=== PATIENT | female | born 1940 | race Caucasian/White ===

== ENCOUNTER 2020-09-25 10:32 | Emergency (ER) | payer OTHER ==
[~2020-09-25 10:32] MED LIST: AMIODARONE HCL200 MG PO; ASPIRIN EC81 MG PO; ATORVASTATIN CA20 MG PO; AUGMENTIN 875-1 EACH PO; BENTYL10 MG PO; COUMADIN1 MG PO; COZAAR 25MG TAB25 MG PO; DICYCLOMINE HCL20 MG PO; ELIQUIS5 MG PO; K-DUR20 MEQ PO; LASIX20 MG PO; LIPITOR20 MG PO; LOVAZA1 GM PO; PROTONIX 40MG T40 MG PO; SENNA8.6 MG PO; TOPROL XL 25MG25 MG PO; TRIAMTERENE-HC1 EAC1 PO; TRIAMTERENE-HC1 EACH PO
[2020-09-25 11:35] LABS: BASOPHIL 1.2 % (0-2); EOSINOPHIL 3.3 % (0-7); HCT 36.2 % (37.0-47.0); HGB 11.6 g/dl (12.5-16.0); LYMPHOCYTE 26.2 % (15-48); MCH 31.4 pg (25.0-31.0); MCV 98.1 fL (78.0-100.0); MPV 9.4 fL (6.0-9.5); NEUTROPHIL 61.1 % (41-80); NRBC 0; PLT 215 K/uL (150-400); RBC 3.69 M/uL (4.20-5.40); RDW 15.5 % (11.5-14.0)
[2020-09-25 12:02] LABS: ALBUMIN 3.5 g/dL (3.4-5.0); ALKALINE PHOSHATASE 123 U/L (46-116); ALT 29 U/L (14-59); AST 22 U/L (15-37); BILIRUBIN - TOTAL 0.4 mg/dL (0.2-1.0); BUN 20 mg/dL (7-18); BUN/CREAT RATIO (CALC) 19.8 RATIO; CHLORIDE 102 mmol/L (98-107); CO2 (BICARBONATE) 29 mmol/L (21-32); CREATININE 1.01 mg/dL (0.51-0.95); GLOBULIN (CALCULATION) 3.5 g/dL; GLUCOSE 126 mg/dL (74-106); POTASSIUM 4.3 mmol/L (3.5-5.1)
[2020-09-25 13:10] LABS: BILIRUBIN NEGATIVE (NEGATIVE); BLOOD TRACE-INTACT Ery/uL (NEGATIVE); CLARITY CLEAR (CLEAR); COLOR YELLOW (YELLOW); GLUCOSE (U) NORMAL (NORMAL); LEUKOCYTES 1+ Leu/uL (NEGATIVE); NITRITE NEGATIVE (NEGATIVE); PROTEIN NEGATIVE (NEGATIVE); UROBILINOGEN 0.2 mg/dL (0.2-1.0); pH 6.5 (5.0-9.0)
[2020-09-25 13:16] LABS: AMPHETAMINES NEGATIVE (NEGATIVE); BARBITURATES NEGATIVE (NEGATIVE); ECSTASY (MDMA) NEGATIVE (NEGATIVE); MARIJUANA (THC) NEGATIVE (NEGATIVE); METHADONE NEGATIVE (NEGATIVE); OPIATES NEGATIVE (NEGATIVE); OXYCODONE NEGATIVE (NEGATIVE)
[2020-09-25 13:23] LABS: BACTERIA TRACE; SQUAMOUS EPITHELIAL CELLS RARE; URINARY RBC RARE
== END 2020-09-25 13:55 | disposition home or self-care (01) ==
LOC: FER 10:32
PROVIDERS: Emergency Medicine
DX: R55 Syncope and collapse (principal); R53.1 Weakness; R42 Dizziness and giddiness; I10 Essential (primary) hypertension; Z86.73 Personal history of transient ischemic attack (TIA), and cerebral infarction without residual deficits
CPT/HCPCS: 36415; 70450; 71045; 80053; 80305; 81001; 84484; 85025; 93005; G0480

== ENCOUNTER → 2021-03-15 | Day surgery (SDC) | payer MEDICARE ==
[~2021-03-15] VITALS: Ht 157.5 cm; Wt 68.5 kg
[~2021-03-15] MED LIST changes: +METOPROLOL SUCC25 MG PO; +PRINIVIL20 MG PO; +SEROQUEL 25MG T25 MG PO
[2021-03-15 11:55] LABS: HCT 35.8 % (37.0-47.0); HGB 11.6 g/dl (12.5-16.0); MCH 32.1 pg (25.0-31.0); MCHC 32.4 g/dL (32.0-36.0); MCV 99.2 fL (78.0-100.0); MPV 9.6 fL (6.0-9.5); RBC 3.61 M/uL (4.20-5.40); RDW 12.9 % (11.5-14.0); WBC 5.2 K/uL (4.0-10.5)
== END | disposition home or self-care (01) ==
LOC: FAS 10:59
PROVIDERS: Surgery
DX: K57.30 Diverticulosis of large intestine without perforation or abscess without bleeding (principal); K64.0 First degree hemorrhoids; K64.4 Residual hemorrhoidal skin tags; I11.0 Hypertensive heart disease with heart failure; I50.22 Chronic systolic (congestive) heart failure; I42.9 Cardiomyopathy, unspecified; I25.10 Atherosclerotic heart disease of native coronary artery without angina pectoris; I25.2 Old myocardial infarction; F41.9 Anxiety disorder, unspecified; M19.90 Unspecified osteoarthritis, unspecified site; F51.04 Psychophysiologic insomnia; K21.9 Gastro-esophageal reflux disease without esophagitis; E78.5 Hyperlipidemia, unspecified; I27.20 Pulmonary hypertension, unspecified; Z86.73 Personal history of transient ischemic attack (TIA), and cerebral infarction without residual deficits
CPT/HCPCS: 36415; J2704; J7120